=== PATIENT | male | born 1975 | race Two or more races ===

== ENCOUNTER 2024-02-20 11:39 | Emergency (ER) | payer OTHER ==
[~2024-02-20] VITALS: Ht 175.3 cm; Wt 100.0 kg
[2024-02-20 12:10] VITALS: RESP 18; O2SAT 97
[2024-02-20 12:43] LABS: Basophils # (auto) 0.1 10 ^3/uL (0-0.2); Basophils % (auto) 0.5 % (0.0-2.0); Eosinophils # (auto) 0.3 10 ^3/uL (0-0.8); Eosinophils % (auto) 3.1 % (0.0-7.0); Hematocrit 43.2 % (41.0-53.0); Hemoglobin 14.3 g/dL (13.5-17.5); Lymphocytes # (auto) 2.1 10 ^3/uL (0.4-5.4); Lymphocytes % (auto) 19.6 % (10.0-50.0); Mean Corpuscular Hgb Conc. 33.1 g/dL (32.0-36.0); Mean Corpuscular Volume 90.4 fL (80.0-100.0); Monocytes # (auto) 0.6 10 ^3/uL (0-1.3); Neutrophils # (auto) 7.7 10 ^3/uL (1.6-8.6); Neutrophils % (auto) 70.8 % (37.0-80.0); Nucleated Red Blood Cells % 0.1 %; Red Blood Cells 4.78 10^6/uL (4.5-5.90); Red Cell Distribution Width 14.9 % (11.8-14.3); White Blood Cell 10.8 10^3/uL (4.4-10.8)
[2024-02-20 12:56] LABS: Chloride 107 mmol/L (98-107); Potassium 3.8 mmol/L (3.5-5.1); Sodium 140 mmol/L (136-145)
[2024-02-20 12:57] LABS: Anion Gap 5 (5-15); Carbon Dioxide 28 mmol/L (20-30)
[2024-02-20 12:58] LABS: Calcium 8.9 mg/dL (8.5-10.1)
[2024-02-20 13:02] LABS: Blood Urea Nitrogen 8 mg/dL (9-23); Glucose 91 mg/dL (74-106)
[2024-02-20 19:35] VITALS: BP 105/72; PULSE 92; RESP 16; TEMP 98.4; O2SAT 98
== END 2024-02-20 21:27 | disposition left against medical advice (07) ==
LOC: ER 11:39 → EDBD 11:39 → ER 21:27
DX: S91.111A Laceration without foreign body of right great toe without damage to nail, initial encounter (principal); F17.210 Nicotine dependence, cigarettes, uncomplicated; Z87.442 Personal history of urinary calculi; Z98.890 Other specified postprocedural states; Z88.0 Allergy status to penicillin; X58.XXXA Exposure to other specified factors, initial encounter; Y93.89 Activity, other specified; Y92.89 Other specified places as the place of occurrence of the external cause; Y99.8 Other external cause status
CPT/HCPCS: 36415; 80048; 85025

== ENCOUNTER 2024-02-21 12:15 | Emergency (ER) | payer OTHER ==
[~2024-02-21] VITALS: Ht 167.6 cm; Wt 82.0 kg
[2024-02-21 17:04] VITALS: BP 124/75; PULSE 97; RESP 18; TEMP 98.1; O2SAT 98
== END 2024-02-21 23:10 | disposition home or self-care (01) ==
LOC: EDBD 12:15 → ER 12:15
DX: S99.921A Unspecified injury of right foot, initial encounter (principal); F17.210 Nicotine dependence, cigarettes, uncomplicated; Z88.0 Allergy status to penicillin; Z87.442 Personal history of urinary calculi; Z90.49 Acquired absence of other specified parts of digestive tract; Z59.00 Homelessness unspecified; W05.0XXA Fall from non-moving wheelchair, initial encounter; Y93.89 Activity, other specified; Y92.89 Other specified places as the place of occurrence of the external cause; Y99.8 Other external cause status

== ENCOUNTER 2024-03-20 03:58 | Inpatient (IN) | payer OTHER ==
[2024-03-20] VITALS (9 sets, daily range): BP systolic 99–109; BP diastolic 58–68; PULSE 57–73; RESP 14–19; TEMP 97.4–97.9; O2SAT 93–100
[~2024-03-20] VITALS: Ht 180.3 cm; Wt 119.0 kg
[2024-03-20 04:43] LABS: Basophils # (auto) 0.1 10 ^3/uL (0-0.2); Basophils % (auto) 1.3 % (0.0-2.0); Eosinophils # (auto) 0.4 10 ^3/uL (0-0.8); Eosinophils % (auto) 4.3 % (0.0-7.0); Hematocrit 38.4 % (41.0-53.0); Hemoglobin 12.7 g/dL (13.5-17.5); Lymphocytes # (auto) 1.7 10 ^3/uL (0.4-5.4); Lymphocytes % (auto) 18.1 % (10.0-50.0); Mean Corpuscular Hemoglobin 29.5 pg (28.0-32.0); Mean Corpuscular Volume 89.5 fL (80.0-100.0); Monocytes # (auto) 0.8 10 ^3/uL (0-1.3); Neutrophils # (auto) 6.5 10 ^3/uL (1.6-8.6); Neutrophils % (auto) 68.3 % (37.0-80.0); Nucleated Red Blood Cells % 0.1 %; Red Blood Cells 4.29 10^6/uL (4.5-5.90); Red Cell Distribution Width 14.4 % (11.8-14.3); White Blood Cell 9.6 10^3/uL (4.4-10.8)
[2024-03-20 04:52] LABS: Chloride 102 mmol/L (98-107); Potassium 3.9 mmol/L (3.5-5.1); Sodium 133 mmol/L (136-145)
[2024-03-20 04:53] LABS: Anion Gap 6 (5-15); Carbon Dioxide 25 mmol/L (20-30)
[2024-03-20 04:58] LABS: BUN/Creatinine Ratio 26.2 (10.0-20.0); Blood Urea Nitrogen 11 mg/dL (9-23); Glucose 120 mg/dL (74-106)
[2024-03-20 07:48] LABS: Urine Bacteria None Seen /hpf (None Seen)
[2024-03-20] MEDS: levoFLOXacin 500MG 100 ML IV ONE (08:01)
[2024-03-20] MEDS: KETOROLAC TROMETH 30 MG/ML 1ML VIAL IV ONE (08:02)
[2024-03-20 08:09] LABS: Urine Blood 3+ /uL (Negative); Urine Clarity Ex.Turbid (Clear); Urine Color Dark-Brown (Yellow); Urine Mucus FEW (None Seen); Urine Protein, UAD 2+ (Negative); Urine Specific Gravity 1.032 (1.001-1.035); Urine Urobilinogen 4 mg/dL (Negative); Urine WBC 289 /hpf (0 - 3); Urine WBC Clumps PRESENT /hpf (None Seen)
[2024-03-20] MEDS ORDERED: ACETAMINOPHEN 325 MG TAB PO PRN (09:15)
[2024-03-20 09:39] LABS: Triglycerides 58 mg/dL (< 150)
[2024-03-20 09:40] LABS: LDL Cholesterol 66 mg/dL (< 100)
[2024-03-20 09:41] LABS: Cholesterol 115 mg/dL (< 200); HDL Cholesterol 36 mg/dL (40-59)
[2024-03-20] MEDS: SODIUM CHLORIDE 0.9% 2,000 ML IV ONE (09:46)
[2024-03-20] MEDS: SODIUM CHLORIDE 0.9% 1,000 ML IV SCH (10:38)
[2024-03-20] MEDS: MORPHINE SULFATE INJ 2 MG/ml SYRG IV PRN (10:40)
[2024-03-20] MEDS: levoFLOXacin 500MG 100 ML IV SCH (10:41)
[2024-03-20] MEDS: ENOXAPARIN SOD 40 MG/0.4 ML SYRINGE SC SCH (10:41)
[2024-03-20] MEDS: TAMSULOSIN HYDROCHLORIDE 0.4 MG CAP PO ONE (10:41)
[2024-03-20] MEDS: TAMSULOSIN HYDROCHLORIDE 0.4 MG CAP PO SCH (18:06)
[2024-03-20] MEDS: HYDROcodone-ACET 5/325MG TAB PO PRN (18:11)
[2024-03-21] VITALS (12 sets, daily range): BP systolic 92–117; BP diastolic 44–75; PULSE 50–75; RESP 17–18; TEMP 97.4–98.6; O2SAT 92–99
[2024-03-21] MEDS: KETOROLAC TROMETH 30 MG/ML 1ML VIAL IV PRN (04:53)
[2024-03-21 07:38] LABS: Alkaline Phosphatase 94 U/L (46-116); Calcium 8.8 mg/dL (8.5-10.1); Carbon Dioxide 24 mmol/L (20-30); Chloride 106 mmol/L (98-107); Glucose 84 mg/dL (74-106)
[2024-03-21 07:39] LABS: Albumin 3.5 g/dL (3.2-4.8); Anion Gap 5 (5-15); Aspartate Aminotransferase 11 U/L (13-40); BUN/Creatinine Ratio 22.2 (10.0-20.0); Bilirubin, Total 0.2 mg/dL (0.2-1.0); Blood Urea Nitrogen 8 mg/dL (9-23); Sodium 135 mmol/L (136-145); Total Protein 5.9 g/dL (5.7-8.2)
[2024-03-21 07:41] LABS: Alanine Aminotransferase < 9 U/L (7-40)
[2024-03-21 08:09] LABS: Basophils # (auto) 0 10 ^3/uL (0-0.2); Basophils % (auto) 0.8 % (0.0-2.0); Eosinophils # (auto) 0.4 10 ^3/uL (0-0.8); Eosinophils % (auto) 7.5 % (0.0-7.0); Hemoglobin 11.9 g/dL (13.5-17.5); Lymphocytes # (auto) 1.7 10 ^3/uL (0.4-5.4); Lymphocytes % (auto) 33.4 % (10.0-50.0); Mean Corpuscular Hemoglobin 29.7 pg (28.0-32.0); Mean Corpuscular Hgb Conc. 33.1 g/dL (32.0-36.0); Mean Corpuscular Volume 89.6 fL (80.0-100.0); Monocytes # (auto) 0.5 10 ^3/uL (0-1.3); Monocytes % (auto) 10.2 % (0.0-12.0); Neutrophils # (auto) 2.4 10 ^3/uL (1.6-8.6); Neutrophils % (auto) 48.1 % (37.0-80.0); Nucleated Red Blood Cells % 0.2 %; Red Blood Cells 4.02 10^6/uL (4.5-5.90); Red Cell Distribution Width 14.7 % (11.8-14.3)
[2024-03-21 09:08] LABS: Phosphorus 3.4 mg/dL (2.4-5.1)
[2024-03-21 09:18] LABS: INR 1.06 (0.9-1.15); Partial Thromboplastin Time 33.1 SEC (24.5-34.5); Prothrombin Time 11.1 sec (9.3-11.8)
[2024-03-21 10:20] LABS: Magnesium 1.9 mg/dL (1.6-2.6)
[2024-03-21] MEDS: ALBUTEROL SULF 2.5 MG/0.5ML(0.5%) NEB SOLN NEB PRN (18:18)
[2024-03-21] MEDS: ERGOCALCIFEROL 50,000 UNIT(1.25MG) CAP PO SCH (18:49)
[2024-03-22] VITALS (8 sets, daily range): BP systolic 93–143; BP diastolic 48–84; PULSE 49–71; RESP 17–19; TEMP 97.6–98.2; O2SAT 94–97
[2024-03-22 07:32] LABS: Basophils # (auto) 0.1 10 ^3/uL (0-0.2); Basophils % (auto) 1.1 % (0.0-2.0); Eosinophils # (auto) 0.3 10 ^3/uL (0-0.8); Eosinophils % (auto) 5.5 % (0.0-7.0); Hematocrit 35.9 % (41.0-53.0); Lymphocytes # (auto) 1.4 10 ^3/uL (0.4-5.4); Lymphocytes % (auto) 26.8 % (10.0-50.0); Mean Corpuscular Hemoglobin 30.1 pg (28.0-32.0); Mean Corpuscular Hgb Conc. 33.4 g/dL (32.0-36.0); Monocytes # (auto) 0.4 10 ^3/uL (0-1.3); Monocytes % (auto) 8.8 % (0.0-12.0); Neutrophils # (auto) 2.9 10 ^3/uL (1.6-8.6); Neutrophils % (auto) 57.8 % (37.0-80.0); Nucleated Red Blood Cells % 0.1 %; Red Blood Cells 3.99 10^6/uL (4.5-5.90); Red Cell Distribution Width 14.3 % (11.8-14.3); White Blood Cell 5.1 10^3/uL (4.4-10.8)
[2024-03-22 07:50] LABS: Alanine Aminotransferase 10 U/L (7-40); Albumin 3.5 g/dL (3.2-4.8); Alkaline Phosphatase 97 U/L (46-116); Anion Gap 5 (5-15); Aspartate Aminotransferase 13 U/L (13-40); Bilirubin, Total 0.3 mg/dL (0.2-1.0); Blood Urea Nitrogen 6 mg/dL (9-23); Carbon Dioxide 26 mmol/L (20-30); Chloride 103 mmol/L (98-107); Glucose 79 mg/dL (74-106); Potassium 4.1 mmol/L (3.5-5.1); Sodium 134 mmol/L (136-145); Total Protein 6.1 g/dL (5.7-8.2)
[2024-03-22 08:06] LABS: PSA Free 0.1 ng/mL; Prostate Specific Antigen 0.9 ng/mL (0.0-4.0)
[2024-03-22] MEDS: cefTRIAXone 1GM/50ML D5W 50 ML IV SCH (09:06)
[2024-03-22 12:11] LABS: Amphetamine Screen, Urine Neg (NEGATIVE); Barbiturate Scree,Urine Neg (NEGATIVE); Benzodiazephine Screen, Urine Neg (NEGATIVE)
[2024-03-22 12:12] LABS: Cannabinoid Screen, Urine Pos (NEGATIVE); Cocaine Screen, Urine Neg (NEGATIVE); Opiate Scree,Urine Pos (NEGATIVE); Phencyclidine Screen, Urine Neg (NEGATIVE)
[2024-03-22] MEDS ORDERED: ALB5IS NEB (15:11)
[2024-03-22] MEDS ORDERED: TAMS-35 PO (15:11)
[2024-03-22] MEDS ORDERED: ERGO1CAP23 PO (15:11)
[2024-03-22] MEDS ORDERED: ACET-1882 PO (15:11)
[2024-03-22] MEDS ORDERED: LEVO500T91 PO (15:12)
[2024-03-23 01:00] VITALS: BP 94/46; PULSE 54; RESP 18; TEMP 98; O2SAT 93
[2024-03-23 05:00] VITALS: BP 109/70; PULSE 57; RESP 18; TEMP 97.6; O2SAT 98
[2024-03-23 09:00] VITALS: BP 115/78; PULSE 63; RESP 18; TEMP 97.7; O2SAT 99
[2024-03-23 11:50] VITALS: O2SAT 94
[2024-03-23 13:00] VITALS: BP 113/62; PULSE 63; RESP 19; TEMP 97.7; O2SAT 95
[2024-03-23 14:53] VITALS: BP 118/77; PULSE 65; RESP 18
[2024-03-23] MEDS ORDERED: BACDST PO (15:30)
== END 2024-03-23 17:02 | disposition home or self-care (01) | DRG 465 ==
LOC: EDBD 03:58 → ER 03:58 → OVERFLOW 09:11 → EAST 13:15
PROVIDERS: ADMIT Internal Medicine; ATTEND Internal Medicine
DX: N20.0 Calculus of kidney (principal); R57.1 Hypovolemic shock; G82.20 Paraplegia, unspecified; L89.899 Pressure ulcer of other site, unspecified stage; E66.01 Morbid (severe) obesity due to excess calories; J45.909 Unspecified asthma, uncomplicated; I10 Essential (primary) hypertension; F17.210 Nicotine dependence, cigarettes, uncomplicated; Z74.01 Bed confinement status; Z90.49 Acquired absence of other specified parts of digestive tract; Z88.0 Allergy status to penicillin; Z79.899 Other long term (current) drug therapy; Z68.34 Body mass index [BMI] 34.0-34.9, adult
CPT/HCPCS: 36415; 76775; 80048; 80053; 80061; 80307; 81001; 82140; 82306; 82607; 83036; 83690; 83735; 84100; 84154; 84443; 84550; 85025; 85610; 85730; 87077; 87081; 87086; 87186; 87205; 94640; 96361; 96365; 96366; 96372; 96375; 97110; 97163; 97530; G0378; J1885; J1956

== ENCOUNTER 2024-03-30 18:20 | Inpatient (IN) | payer OTHER ==
[~2024-03-30] VITALS: Ht 175.3 cm; Wt 100.4 kg
[~2024-03-30 18:20] MED LIST: ACET-1882 PO; ALB5IS NEB; BACDST PO; ERGO1CAP23 PO; LEVO500T91 PO; TAMS-35 PO
[2024-03-30 19:19] LABS: Basophils # (auto) 0.1 10 ^3/uL (0-0.2); Basophils % (auto) 1.4 % (0.0-2.0); Eosinophils # (auto) 0.3 10 ^3/uL (0-0.8); Eosinophils % (auto) 3.3 % (0.0-7.0); Hematocrit 43.6 % (41.0-53.0); Hemoglobin 14.2 g/dL (13.5-17.5); Lymphocytes # (auto) 2.2 10 ^3/uL (0.4-5.4); Lymphocytes % (auto) 21.3 % (10.0-50.0); Mean Corpuscular Hemoglobin 29.5 pg (28.0-32.0); Mean Corpuscular Hgb Conc. 32.5 g/dL (32.0-36.0); Mean Corpuscular Volume 90.8 fL (80.0-100.0); Monocytes # (auto) 0.6 10 ^3/uL (0-1.3); Monocytes % (auto) 5.6 % (0.0-12.0); Neutrophils # (auto) 7.1 10 ^3/uL (1.6-8.6); Neutrophils % (auto) 68.4 % (37.0-80.0); Nucleated Red Blood Cells % 0.1 %; Red Cell Distribution Width 14.4 % (11.8-14.3); White Blood Cell 10.3 10^3/uL (4.4-10.8)
[2024-03-30 19:36] LABS: Alanine Aminotransferase 10 U/L (7-40); Albumin 4.1 g/dL (3.2-4.8); Alkaline Phosphatase 111 U/L (46-116); Anion Gap 5 (5-15); Aspartate Aminotransferase 13 U/L (13-40); BUN/Creatinine Ratio 26.5 (10.0-20.0); Blood Urea Nitrogen 13 mg/dL (9-23); Calcium 9.9 mg/dL (8.5-10.1); Carbon Dioxide 30 mmol/L (20-30); Chloride 105 mmol/L (98-107); Glucose 97 mg/dL (74-106); Potassium 4.4 mmol/L (3.5-5.1); Sodium 140 mmol/L (136-145)
[2024-03-30 19:37] LABS: Bilirubin, Total 0.2 mg/dL (0.2-1.0); Total Protein 6.6 g/dL (5.7-8.2)
[2024-03-30 20:59] LABS: Urine Bacteria None Seen /hpf (None Seen)
[2024-03-30] MEDS: SODIUM CHLORIDE 0.9% 1,000 ML IV ONE (21:15)
[2024-03-30 21:18] LABS: Urine Blood 3+ /uL (Negative); Urine Clarity Ex.Turbid (Clear); Urine Color Brown (Yellow); Urine Mucus MODERATE (None Seen); Urine Protein, UAD 2+ (Negative); Urine Specific Gravity 1.032 (1.001-1.035); Urine Urobilinogen 2 mg/dL (Negative); Urine WBC 37 /hpf (0 - 3); Urine pH 5.5 (5.0-9.0)
[2024-03-30] MEDS: KETOROLAC TROMETH 30 MG/ML 1ML VIAL IV ONE (22:25)
[2024-03-30] MEDS ORDERED: ACETAMINOPHEN 325 MG TAB PO PRN (23:15)
[2024-03-30] MEDS ORDERED: NITROGLYCERIN 0.4 MG SL TAB SL PRN (23:15)
[2024-03-30] MEDS ORDERED: ONDANSETRON HCL 4 MG/2 ML VIAL IV PRN (23:15)
[2024-03-30] MEDS ORDERED: MORPHINE SULFATE INJ 2 MG/ml SYRG IV PRN (23:15)
[2024-03-30] MEDS ORDERED: TEMAZEPAM 15 MG CAP PO PRN (23:15)
[2024-03-30] MEDS: SODIUM CHLORIDE 0.9% 1,000 ML IV SCH (23:19)
[2024-03-30] MEDS: levoFLOXacin 500MG 100 ML IV ONE (23:31)
[2024-03-31] MEDS ORDERED: VANCOMYCIN PER PHARMACY 0 MG IV SCH (00:15)
[2024-03-31] MEDS ORDERED: ACETAMINOPHEN 325 MG TAB PO PRN (00:15)
[2024-03-31] MEDS: NOREPINEPHRINE 8 MG/250ML KIT 250 ML IV SCH (00:39)
[2024-03-31] MEDS: NOREPINEPHRINE 8 MG/250ML KIT 250 ML IV ONE (00:40)
[2024-03-31] MEDS: SODIUM CHLORIDE 0.9% 1,000 ML IV ONE (01:08)
[2024-03-31] MEDS: VANCOMYCIN 1GM/200ML 200 ML IV ONE ×2 (01:51→08:46)
[2024-03-31] MEDS: MORPHINE SULFATE INJ 2 MG/ml SYRG IV PRN (02:16)
[2024-03-31] MEDS: DOPamine 1600MCG/ML D5W 250 ML IV SCH (03:58)
[2024-03-31 04:44] LABS: Basophils # (auto) 0.2 10 ^3/uL (0-0.2); Basophils % (auto) 2.5 % (0.0-2.0); Eosinophils # (auto) 0.4 10 ^3/uL (0-0.8); Eosinophils % (auto) 4.2 % (0.0-7.0); Hemoglobin 12.2 g/dL (13.5-17.5); Lymphocytes # (auto) 2.6 10 ^3/uL (0.4-5.4); Lymphocytes % (auto) 26.2 % (10.0-50.0); Mean Corpuscular Hemoglobin 29.4 pg (28.0-32.0); Mean Corpuscular Volume 89.1 fL (80.0-100.0); Monocytes # (auto) 0.6 10 ^3/uL (0-1.3); Monocytes % (auto) 6.5 % (0.0-12.0); Neutrophils # (auto) 5.9 10 ^3/uL (1.6-8.6); Neutrophils % (auto) 60.6 % (37.0-80.0); Nucleated Red Blood Cells % 0.1 %; Red Blood Cells 4.15 10^6/uL (4.5-5.90); Red Cell Distribution Width 14.1 % (11.8-14.3); White Blood Cell 9.8 10^3/uL (4.4-10.8)
[2024-03-31 05:27] LABS: Albumin 3.3 g/dL (3.2-4.8); Alkaline Phosphatase 85 U/L (46-116); Anion Gap 7 (5-15); Aspartate Aminotransferase 14 U/L (13-40); BUN/Creatinine Ratio 30.3 (10.0-20.0); Blood Urea Nitrogen 10 mg/dL (9-23); Calcium 8.9 mg/dL (8.5-10.1); Carbon Dioxide 24 mmol/L (20-30); Chloride 110 mmol/L (98-107); Glucose 87 mg/dL (74-106); Potassium 4.3 mmol/L (3.5-5.1); Sodium 141 mmol/L (136-145)
[2024-03-31 05:28] LABS: Bilirubin, Total 0.2 mg/dL (0.2-1.0); Total Protein 5.6 g/dL (5.7-8.2)
[2024-03-31 06:02] LABS: Alanine Aminotransferase < 9 U/L (7-40)
[2024-03-31 07:45] VITALS: PULSE 59; RESP 10; O2SAT 96
[2024-03-31] MEDS: ERGOCALCIFEROL 50,000 UNIT(1.25MG) CAP PO SCH (09:33)
[2024-03-31] MEDS: SULFAMETHOX W/TRIMETH(800/160MG) DS TAB PO SCH (09:33)
[2024-03-31] MEDS: HYDROcodone-ACET 5/325MG TAB PO PRN (09:33)
[2024-03-31] MEDS ORDERED: levoFLOXacin 500MG 100 ML IV SCH (10:00)
[2024-03-31] MEDS: KETOROLAC TROMETH 30 MG/ML 1ML VIAL IV SCH (12:35)
[2024-03-31] MEDS: VANCOMYCIN 1GM/200ML 200 ML IV SCH (16:53)
[2024-03-31 17:50] VITALS: BP 89/48; PULSE 67; RESP 17; TEMP 97.9; O2SAT 95
[2024-03-31] MEDS: TAMSULOSIN HYDROCHLORIDE 0.4 MG CAP PO SCH (19:04)
[2024-03-31 20:00] VITALS: PULSE 69; RESP 19; O2SAT 97
[2024-03-31 21:00] VITALS: BP 98/52; PULSE 67; RESP 17; TEMP 97.7; O2SAT 97
[2024-03-31] MEDS: levoFLOXacin 500 MG TAB PO SCH (21:39)
[2024-03-31] MEDS: levoFLOXacin 500MG 100 ML IV SCH (21:57)
[2024-04-01] VITALS (8 sets, daily range): BP systolic 91–118; BP diastolic 50–72; PULSE 55–83; RESP 16–20; TEMP 36.7; O2SAT 94–98
[2024-04-01] MEDS ORDERED: LEVO500T91 PO ×2 (13:14→13:16)
[2024-04-01] MEDS ORDERED: HYDR-4902 PO (13:14)
[2024-04-01] MEDS ORDERED: TEMA15CA2 PO (13:14)
[2024-04-01] MEDS ORDERED: TAMS-35 PO (13:16)
[2024-04-01] MEDS ORDERED: MUPI2OIN2 EX (15:33)
[2024-04-01] MEDS: ONDANSETRON HCL 4 MG/2 ML VIAL IV PRN (18:35)
[2024-04-02] VITALS (7 sets, daily range): BP systolic 89–99; BP diastolic 53–63; PULSE 56–81; RESP 16–20; TEMP 97.2–98.7; O2SAT 93–99
[2024-04-02] MEDS: ALPRAZolam 0.5 MG TAB PO PRN (02:31)
[2024-04-02] MEDS: ACETAMINOPHEN 325 MG TAB PO PRN (02:31)
[2024-04-02] MEDS: MIDODRINE HCL 10 MG TAB PO SCH (05:28)
[2024-04-02 07:06] LABS: Basophils # (auto) 0.1 10 ^3/uL (0-0.2); Basophils % (auto) 1.2 % (0.0-2.0); Eosinophils # (auto) 0.2 10 ^3/uL (0-0.8); Eosinophils % (auto) 2.3 % (0.0-7.0); Hematocrit 39.2 % (41.0-53.0); Lymphocytes # (auto) 1.7 10 ^3/uL (0.4-5.4); Lymphocytes % (auto) 19.2 % (10.0-50.0); Mean Corpuscular Hemoglobin 29.5 pg (28.0-32.0); Mean Corpuscular Hgb Conc. 33.1 g/dL (32.0-36.0); Mean Corpuscular Volume 89.3 fL (80.0-100.0); Monocytes # (auto) 0.4 10 ^3/uL (0-1.3); Monocytes % (auto) 4.6 % (0.0-12.0); Neutrophils # (auto) 6.3 10 ^3/uL (1.6-8.6); Neutrophils % (auto) 72.7 % (37.0-80.0); Red Blood Cells 4.39 10^6/uL (4.5-5.90); Red Cell Distribution Width 13.9 % (11.8-14.3); White Blood Cell 8.7 10^3/uL (4.4-10.8)
[2024-04-02 07:38] LABS: Albumin 3.6 g/dL (3.2-4.8); Alkaline Phosphatase 99 U/L (46-116); Anion Gap 9 (5-15); Aspartate Aminotransferase 14 U/L (13-40); BUN/Creatinine Ratio 16.3 (10.0-20.0); Blood Urea Nitrogen 7 mg/dL (9-23); Calcium 9.5 mg/dL (8.5-10.1); Carbon Dioxide 22 mmol/L (20-30); Chloride 104 mmol/L (98-107); Glucose 65 mg/dL (74-106); Potassium 4.2 mmol/L (3.5-5.1)
[2024-04-02 07:39] LABS: Bilirubin, Total 0.4 mg/dL (0.2-1.0)
[2024-04-02 07:43] LABS: Alanine Aminotransferase < 9 U/L (7-40); Sodium 135 mmol/L (136-145)
[2024-04-02] MEDS: MUPIROCIN 2% OINT 15gm or 22gm FOR MRSA NARES EACHNOSTRI SCH (10:00)
[2024-04-02] MEDS: SODIUM CHLORIDE 0.9% 500 ML IV ONE (10:46)
[2024-04-02] MEDS: ALBUMIN 25% 50 ML IV SCH (10:52)
[2024-04-02] MEDS ORDERED: KETOROLAC TROMETH 30 MG/ML 1ML VIAL IV PRN (12:30)
[2024-04-02] MEDS: HYDROcodone-ACET 10/325MG TAB PO PRN (17:06)
[2024-04-03 04:00] VITALS: BP 94/65; PULSE 56; RESP 20; TEMP 97.7; O2SAT 90
[2024-04-03 08:00] VITALS: BP 105/66; PULSE 49; PULSE 61; RESP 17; TEMP 98; O2SAT 93
[2024-04-03 12:00] VITALS: BP 104/63; PULSE 58; RESP 17; TEMP 98.3; O2SAT 98
[2024-04-03 17:00] VITALS: BP 111/66; PULSE 66; RESP 18; TEMP 98; O2SAT 94
[2024-04-03 20:00] VITALS: PULSE 51; PULSE 71; RESP 16; O2SAT 99
[2024-04-03] MEDS: QUEtiapine FUMARATE 25 MG TAB PO SCH (20:56)
[2024-04-03 21:00] VITALS: BP 105/61; PULSE 64; RESP 18; TEMP 98.1; O2SAT 94
[2024-04-03] MEDS: HYDROcodone-ACET 5/325MG TAB PO PRN (21:04)
[2024-04-04] VITALS (8 sets, daily range): BP systolic 3–100; BP diastolic 49–60; PULSE 46–66; RESP 16–20; TEMP 97.9–98.3; O2SAT 93–99
[2024-04-05] VITALS (8 sets, daily range): BP systolic 92–106; BP diastolic 40–72; PULSE 53–79; RESP 18–20; TEMP 97.8–98.8; O2SAT 96–98
[2024-04-05] MEDS: CITALOPRAM HYDROBR 20 MG TAB PO SCH (13:13)
[2024-04-06 05:00] VITALS: BP 102/62; PULSE 71; RESP 19; TEMP 98.6; O2SAT 96
[2024-04-06 08:00] VITALS: PULSE 50
[2024-04-06 08:48] VITALS: BP 104/59; PULSE 63; RESP 17; TEMP 98.3; O2SAT 95
[2024-04-06 13:00] VITALS: BP 102/57; PULSE 71; RESP 19; TEMP 97.9; O2SAT 94
[2024-04-06 20:00] VITALS: PULSE 52
[2024-04-06 21:00] VITALS: BP 95/49; PULSE 60; RESP 18; TEMP 97.9; O2SAT 95
[2024-04-07] VITALS (7 sets, daily range): BP systolic 93–133; BP diastolic 59–72; PULSE 49–76; RESP 16–20; TEMP 36.7; O2SAT 18–96
[2024-04-08] VITALS (7 sets, daily range): BP systolic 96–100; BP diastolic 49–58; PULSE 52–71; RESP 16; TEMP 97.8–98.1; O2SAT 94–96
[2024-04-08] MEDS: QUEtiapine FUMARATE 25 MG TAB PO SCH (12:00)
[2024-04-09] VITALS (9 sets, daily range): BP systolic 87–105; BP diastolic 53–72; PULSE 55–79; RESP 16–18; TEMP 97.9–98.6; O2SAT 96–97
[2024-04-09] MEDS: Ensure Enlive Strawberry 8oz Bottle PO SCH (18:31)
[2024-04-10] VITALS (7 sets, daily range): BP systolic 107–117; BP diastolic 69–73; PULSE 59–96; RESP 18; TEMP 97.8–98.3; O2SAT 94–97
[2024-04-11 00:40] VITALS: BP 100/66; PULSE 89; RESP 18; TEMP 98; O2SAT 95
[2024-04-11 04:31] VITALS: BP 101/69; PULSE 88; RESP 18; TEMP 98.1; O2SAT 95
[2024-04-11 08:00] VITALS: PULSE 88; RESP 18
[2024-04-11] MEDS: CITALOPRAM HYDROBR 20 MG TAB PO SCH (09:50)
[2024-04-11 12:25] VITALS: BP 119/72; PULSE 82; RESP 17; O2SAT 95
[2024-04-11] MEDS ORDERED: CITA-77 PO (14:47)
[2024-04-11] MEDS ORDERED: MID10T PO (14:47)
[2024-04-11 15:12] LABS: Basophils # (auto) 0.1 10 ^3/uL (0-0.2); Basophils % (auto) 1.2 % (0.0-2.0); Eosinophils # (auto) 0.1 10 ^3/uL (0-0.8); Eosinophils % (auto) 1.5 % (0.0-7.0); Hematocrit 46.7 % (41.0-53.0); Hemoglobin 15.2 g/dL (13.5-17.5); Lymphocytes # (auto) 1.7 10 ^3/uL (0.4-5.4); Lymphocytes % (auto) 23.4 % (10.0-50.0); Mean Corpuscular Hemoglobin 28.9 pg (28.0-32.0); Mean Corpuscular Hgb Conc. 32.6 g/dL (32.0-36.0); Mean Corpuscular Volume 88.7 fL (80.0-100.0); Monocytes # (auto) 0.5 10 ^3/uL (0-1.3); Monocytes % (auto) 6.5 % (0.0-12.0); Neutrophils % (auto) 67.4 % (37.0-80.0); Nucleated Red Blood Cells % 0.3 %; Red Blood Cells 5.27 10^6/uL (4.5-5.90); White Blood Cell 7.4 10^3/uL (4.4-10.8)
[2024-04-11 15:14] LABS: Alanine Aminotransferase 14 U/L (7-40); Alkaline Phosphatase 98 U/L (46-116); Anion Gap 7 (5-15); Aspartate Aminotransferase 10 U/L (13-40); Bilirubin, Total 0.4 mg/dL (0.2-1.0); Blood Urea Nitrogen 8 mg/dL (9-23); Calcium 9.6 mg/dL (8.7-10.4); Carbon Dioxide 27 mmol/L (20-30); Chloride 98 mmol/L (98-107); Glucose 87 mg/dL (74-106); Potassium 4.2 mmol/L (3.5-5.1); Sodium 132 mmol/L (136-145); Total Protein 6.6 g/dL (5.7-8.2)
[2024-04-11 17:00] VITALS: BP 99/68; PULSE 74; RESP 18; O2SAT 95
== END 2024-04-11 19:00 | disposition home or self-care (01) | DRG 463 ==
LOC: EDUNIT# 18:20 → ER 18:20 → EDBD 18:20 → TELE-WESTW 23:06 → TELE 23:06 → TELE-WESTW 03-31 18:02 → WEST WING 04-10 23:19
PROVIDERS: ADMIT Internal Medicine; ATTEND Nurse Practitioner
DX: N13.6 Pyonephrosis (principal); R57.1 Hypovolemic shock; G82.20 Paraplegia, unspecified; F25.9 Schizoaffective disorder, unspecified; R45.851 Suicidal ideations; N39.0 Urinary tract infection, site not specified; R00.1 Bradycardia, unspecified; F17.210 Nicotine dependence, cigarettes, uncomplicated; F32.A Depression, unspecified; Z87.442 Personal history of urinary calculi; Z88.0 Allergy status to penicillin; Z90.49 Acquired absence of other specified parts of digestive tract; Z91.51 Personal history of suicidal behavior; R31.9 Hematuria, unspecified
CPT/HCPCS: 36415; 74176; 76870; 80053; 80202; 81001; 82565; 85025; 87081; 96361; 96365; 96375; G0378; J1885; J1956; J2405

== ENCOUNTER 2024-04-24 23:47 | Inpatient (IN) | payer OTHER ==
[~2024-04-24] VITALS: Ht 175.3 cm; Wt 100.0 kg
[~2024-04-24 23:47] MED LIST changes: -BACDST PO; +CITA-77 PO; +HYDR-4902 PO; +MID10T PO; +MUPI2OIN2 EX
[2024-04-25 00:17] VITALS: PULSE 75; O2SAT 96
[2024-04-25 03:52] LABS: Basophils # (auto) 0.1 10 ^3/uL (0-0.2); Eosinophils # (auto) 0.3 10 ^3/uL (0-0.8); Eosinophils % (auto) 2.8 % (0.0-7.0); Hematocrit 39.9 % (41.0-53.0); Hemoglobin 13.3 g/dL (13.5-17.5); Lymphocytes # (auto) 1.6 10 ^3/uL (0.4-5.4); Lymphocytes % (auto) 16.5 % (10.0-50.0); Mean Corpuscular Hemoglobin 29.4 pg (28.0-32.0); Mean Corpuscular Hgb Conc. 33.3 g/dL (32.0-36.0); Mean Corpuscular Volume 88.1 fL (80.0-100.0); Monocytes # (auto) 0.8 10 ^3/uL (0-1.3); Monocytes % (auto) 8.5 % (0.0-12.0); Neutrophils # (auto) 6.9 10 ^3/uL (1.6-8.6); Neutrophils % (auto) 71.2 % (37.0-80.0); Red Blood Cells 4.53 10^6/uL (4.5-5.90); Red Cell Distribution Width 14.2 % (11.8-14.3); White Blood Cell 9.7 10^3/uL (4.4-10.8)
[2024-04-25 04:11] LABS: Alanine Aminotransferase 22 U/L (7-40); Albumin 3.7 g/dL (3.2-4.8); Alkaline Phosphatase 85 U/L (46-116); Anion Gap 4 (5-15); Aspartate Aminotransferase 19 U/L (13-40); BUN/Creatinine Ratio 16.4 (10.0-20.0); Blood Urea Nitrogen 10 mg/dL (9-23); Calcium 9.7 mg/dL (8.7-10.4); Carbon Dioxide 28 mmol/L (20-30); Chloride 108 mmol/L (98-107); Glucose 102 mg/dL (74-106); Potassium 3.9 mmol/L (3.5-5.1); Sodium 140 mmol/L (136-145)
[2024-04-25 04:12] LABS: Bilirubin, Total 0.3 mg/dL (0.2-1.0); Total Protein 6.4 g/dL (5.7-8.2)
[2024-04-25 04:54] LABS: Urine Bacteria None Seen /hpf (None Seen)
[2024-04-25 05:09] LABS: Urine Blood 3+ /uL (Negative); Urine Clarity Ex.Turbid (Clear); Urine Mucus FEW (None Seen); Urine Protein, UAD 1+ (Negative); Urine Urobilinogen Normal (Negative); Urine WBC 5 /hpf (0 - 3); Urine WBC Clumps PRESENT /hpf (None Seen)
[2024-04-25 05:11] LABS: Urine Color Amber (Yellow)
[2024-04-25] MEDS: levoFLOXacin 500MG 100 ML IV ONE (05:11)
[2024-04-25] MEDS: KETOROLAC TROMETH 30 MG/ML 1ML VIAL IV ONE (05:11)
[2024-04-25 05:12] LABS: Amphetamine Screen, Urine Neg (NEGATIVE); Barbiturate Scree,Urine Neg (NEGATIVE); Benzodiazephine Screen, Urine Neg (NEGATIVE); Cannabinoid Screen, Urine Pos (NEGATIVE); Cocaine Screen, Urine Neg (NEGATIVE); Opiate Scree,Urine Pos (NEGATIVE); Phencyclidine Screen, Urine Neg (NEGATIVE)
[2024-04-25] MEDS: SODIUM CHLORIDE 0.9% 1,000 ML IV SCH (08:00)
[2024-04-25] MEDS ORDERED: NITROGLYCERIN 0.4 MG SL TAB SL PRN (08:00)
[2024-04-25] MEDS ORDERED: ACETAMINOPHEN 325 MG TAB PO PRN (08:00)
[2024-04-25 08:05] VITALS: O2SAT 96
[2024-04-25] MEDS: diphenhdrAMINE HCL 50 MG/1 ML VL IV PRN (09:33)
[2024-04-25] MEDS: PIPERACILLIN-TAZOB 3.375GM 100 ML IV SCH ×2 (09:35→19:31)
[2024-04-25] MEDS: POLYETHYLENE GLYCOL 17 GM PWDR PO SCH (10:19)
[2024-04-25] MEDS: HYDROcodone-ACET 5/325MG TAB PO PRN (10:19)
[2024-04-25] MEDS: CITALOPRAM HYDROBR 20 MG TAB PO SCH (10:19)
[2024-04-25] MEDS: ENOXAPARIN SOD 40 MG/0.4 ML SYRINGE SC SCH (10:19)
[2024-04-25 11:59] LABS: INR 1.09 (0.9-1.15); Partial Thromboplastin Time 32.3 SEC (24.5-34.5); Prothrombin Time 11.5 sec (9.3-11.8)
[2024-04-25] MEDS: MIDODRINE HCL 10 MG TAB PO SCH (13:27)
[2024-04-25] MEDS: TAMSULOSIN HYDROCHLORIDE 0.4 MG CAP PO SCH (19:30)
[2024-04-25 19:45] VITALS: PULSE 53; RESP 17; O2SAT 97
[2024-04-25 20:00] VITALS: PULSE 53; RESP 15; O2SAT 95
[2024-04-25 22:00] VITALS: BP 104/61; PULSE 52; RESP 17; TEMP 98.6; O2SAT 93
[2024-04-26 06:57] LABS: Basophils # (auto) 0 10 ^3/uL (0-0.2); Eosinophils # (auto) 0.2 10 ^3/uL (0-0.8); Hemoglobin 9.1 g/dL (13.5-17.5); Lymphocytes # (auto) 1.1 10 ^3/uL (0.4-5.4); Mean Corpuscular Hemoglobin 29.1 pg (28.0-32.0)
[2024-04-26 07:01] LABS: Basophils % (auto) 0.6 % (0.0-2.0); Eosinophils % (auto) 3.3 % (0.0-7.0); Hematocrit 32.6 % (41.0-53.0); Lymphocytes % (auto) 24.7 % (10.0-50.0); Mean Corpuscular Hgb Conc. 27.9 g/dL (32.0-36.0); Mean Corpuscular Volume 104.1 fL (80.0-100.0); Monocytes # (auto) 0.4 10 ^3/uL (0-1.3); Monocytes % (auto) 8.5 % (0.0-12.0); Neutrophils # (auto) 2.9 10 ^3/uL (1.6-8.6); Neutrophils % (auto) 62.9 % (37.0-80.0); Nucleated Red Blood Cells % 0.1 %; Red Blood Cells 3.13 10^6/uL (4.5-5.90); Red Cell Distribution Width 16.3 % (11.8-14.3); White Blood Cell 4.6 10^3/uL (4.4-10.8)
[2024-04-26 08:21] LABS: Anion Gap 4 (5-15); Carbon Dioxide 20 mmol/L (20-30)
[2024-04-26 08:26] LABS: Alkaline Phosphatase 50 U/L (46-116); Glucose 59 mg/dL (74-106)
[2024-04-26 08:28] LABS: Alanine Aminotransferase 13 U/L (7-40); Albumin 1.9 g/dL (3.2-4.8); Aspartate Aminotransferase 15 U/L (13-40); Bilirubin, Total 0.2 mg/dL (0.2-1.0); Total Protein 3.7 g/dL (5.7-8.2)
[2024-04-26 08:32] LABS: BUN/Creatinine Ratio 26.3 (10.0-20.0); Blood Urea Nitrogen < 5 mg/dL (9-23); Chloride 122 mmol/L (98-107); Sodium 146 mmol/L (136-145)
[2024-04-26 08:51] LABS: Calcium 5.9 mg/dL (8.5-10.1)
[2024-04-26 09:52] LABS: Magnesium 1.2 mg/dL (1.6-2.6)
[2024-04-26 09:53] LABS: Phosphorus 2.5 mg/dL (2.4-5.1)
[2024-04-26] MEDS: PANTOPRAZOLE 40 MG/10 ML VIAL INJ IV SCH (09:55)
[2024-04-26 11:36] VITALS: BP 92/57; PULSE 49; RESP 16; TEMP 98; O2SAT 94
[2024-04-26] MEDS: CALCIUM GLUC 1,000mg/50ml-NS 50 ML IV SCH (13:08)
[2024-04-26] MEDS: MORPHINE SULFATE INJ 2 MG/ml SYRG IV PRN (13:08)
[2024-04-26] MEDS: ONDANSETRON HCL 4 MG/2 ML VIAL IV PRN (13:11)
[2024-04-26 16:57] VITALS: BP 98/70; PULSE 50; RESP 16; TEMP 98.1; O2SAT 96
[2024-04-26] MEDS: POTASSIUM CHL 20 Meq TABLET PO ONE (18:01)
[2024-04-26 20:00] VITALS: BP 94/60; PULSE 70; RESP 17; TEMP 98.3; O2SAT 92
[2024-04-26 21:00] VITALS: BP 94/60; PULSE 70; RESP 17; TEMP 98.3; O2SAT 92
[2024-04-26] MEDS: TEMAZEPAM 15 MG CAP PO PRN (23:36)
[2024-04-27] VITALS (9 sets, daily range): BP systolic 93–120; BP diastolic 32–77; PULSE 47–92; RESP 13–20; TEMP 97.4–98.5; O2SAT 92–98
[2024-04-27] MEDS: IODIXANOL 320MG/ML 100ML BTL IV ONE (13:53)
[2024-04-27] MEDS: fentaNYL CITRATE 100 MCG/2 ML VL ONE (13:53)
[2024-04-27] MEDS: MIDAZOLAM HCL 2MG/2ML 2ml VIAL (1mg/ml) ONE (13:53)
[2024-04-27] MEDS: LIDOCAINE 2%HCL (LOCAL ANESTH.) INJ 10ml MDV ONE (13:53)
[2024-04-27] MEDS: MAGNESIUM SULFATE 1GM/100ML 100 ML IV SCH ×2 (16:00→20:29)
[2024-04-27] MEDS ORDERED: PIPERACILLIN-TAZOB 3.375GM 100 ML IV SCH (16:00)
[2024-04-27] MEDS: PIPERACILLIN-TAZOB 3.375GM 100 ML IV SCH (18:28)
[2024-04-28 08:00] VITALS: TEMP 36.8
[2024-04-28 09:00] VITALS: BP 103/73; PULSE 101; RESP 18; TEMP 98.2; O2SAT 95
[2024-04-28 11:10] LABS: Basophils # (auto) 0 10 ^3/uL (0-0.2); Basophils % (auto) 0.3 % (0.0-2.0); Eosinophils # (auto) 0 10 ^3/uL (0-0.8); Hematocrit 41.5 % (41.0-53.0); Hemoglobin 13.9 g/dL (13.5-17.5); Lymphocytes # (auto) 1.2 10 ^3/uL (0.4-5.4); Lymphocytes % (auto) 10.6 % (10.0-50.0); Mean Corpuscular Hemoglobin 28.9 pg (28.0-32.0); Mean Corpuscular Hgb Conc. 33.5 g/dL (32.0-36.0); Mean Corpuscular Volume 86.1 fL (80.0-100.0); Monocytes # (auto) 0.4 10 ^3/uL (0-1.3); Monocytes % (auto) 3.8 % (0.0-12.0); Neutrophils # (auto) 9.4 10 ^3/uL (1.6-8.6); Neutrophils % (auto) 85.3 % (37.0-80.0); Nucleated Red Blood Cells % 0.1 %; Red Blood Cells 4.82 10^6/uL (4.5-5.90); Red Cell Distribution Width 13.7 % (11.8-14.3)
[2024-04-28 11:29] LABS: INR 1.09 (0.9-1.15); Prothrombin Time 11.5 sec (9.3-11.8)
[2024-04-28 11:32] LABS: Alanine Aminotransferase 12 U/L (7-40); Albumin 3.9 g/dL (3.2-4.8); Alkaline Phosphatase 93 U/L (46-116); Anion Gap 8 (5-15); Aspartate Aminotransferase 9 U/L (13-40); Bilirubin, Total 0.5 mg/dL (0.2-1.0); Calcium 9.2 mg/dL (8.5-10.1); Carbon Dioxide 24 mmol/L (20-30); Chloride 100 mmol/L (98-107); Glucose 97 mg/dL (74-106); Magnesium 1.9 mg/dL (1.6-2.6); Potassium 3.3 mmol/L (3.5-5.1); Total Protein 6.7 g/dL (5.7-8.2)
[2024-04-28 11:36] LABS: Sodium 132 mmol/L (136-145)
[2024-04-28 11:37] LABS: BUN/Creatinine Ratio 12.2 (10.0-20.0); Blood Urea Nitrogen < 5 mg/dL (9-23)
[2024-04-28] MEDS: CIPROFLOXACIN 400MG/200ML 200 ML IV ONE (12:23)
[2024-04-28] MEDS: FAMOTIDINE (10MG/ML) 2ML VL IV ONE (15:06)
[2024-04-28] MEDS ORDERED: ePHEDrine SULFATE 50 MG/ML AMP ONE (15:14)
[2024-04-28] MEDS ORDERED: MIDAZOLAM HCL 2MG/2ML 2ml VIAL (1mg/ml) ONE (15:14)
[2024-04-28] MEDS ORDERED: KETAMINE 50mg/ML 1ml syringe ONE (15:14)
[2024-04-28] MEDS ORDERED: ONDANSETRON HCL 4 MG/2 ML VIAL ONE (15:14)
[2024-04-28] MEDS ORDERED: ROCURONIUM 10MG/ML 10ML VIAL IV ONE (15:14)
[2024-04-28] MEDS ORDERED: LIDOCAINE 2% (LOCAL ANESTH.) PF 5ml SDV ONE (15:14)
[2024-04-28] MEDS ORDERED: GLYCOPYRROLATE 0.2 MG/ML 1ML VIAL ONE (15:14)
[2024-04-28] MEDS ORDERED: fentaNYL CITRATE 100 MCG/2 ML VL ONE (15:14)
[2024-04-28] MEDS ORDERED: DexAMETHasone SOD PHOS 10MG/1ML VIAL INJ ONE (15:14)
[2024-04-28] MEDS ORDERED: HYDROmorphone HCL 2 MG/ML VL/or syr ONE (15:14)
[2024-04-28] MEDS: IOHEXOL 300 MG/ML 100ML BOTTLE IJ ONE (16:35)
[2024-04-28] MEDS ORDERED: SUGAMMADEX 200mg/2ml Vial (100MG/ML) IV ONE (16:51)
[2024-04-28 17:06] VITALS: O2SAT 100
[2024-04-28] MEDS: ONDANSETRON HCL 4 MG/2 ML VIAL IV ONE (17:15)
[2024-04-28] MEDS ORDERED: HYDROmorphone HCL 2 MG/ML VL/or syr IV PRN (17:15)
[2024-04-28] MEDS: POTASSIUM CHL 20 Meq TABLET PO ONE (18:56)
[2024-04-28 20:00] VITALS: PULSE 79; RESP 16
[2024-04-28 21:00] VITALS: BP 116/71; PULSE 79; RESP 16; TEMP 98.3; O2SAT 93
[2024-04-28] MEDS: HYDROmorphone HCL 2 MG/ML VL/or syr IV PRN (21:28)
[2024-04-29] VITALS (9 sets, daily range): BP systolic 107–123; BP diastolic 51–91; PULSE 52–79; RESP 16–17; TEMP 36.6–36.7; O2SAT 93–98
[2024-04-29] MEDS: DOCUSATE SOD 100 MG CAP PO PRN (09:00)
[2024-04-29] MEDS ORDERED: CIPR-173 PO (12:09)
== END 2024-04-29 20:29 | disposition home health service (06) | DRG 699 ==
LOC: ER 23:47 → EDBD 23:47 → EDUNIT# 23:47 → OVERFLOW 04-25 07:23 → CENTRAL 04-25 18:46
PROVIDERS: ADMIT Nurse Practitioner; ATTEND Nurse Practitioner
PROC: 0T903ZZ Drainage of Right Kidney, Percutaneous Approach (ICD-10-PCS; 2024-04-27)
PROC: BT111ZZ Fluoroscopy of Right Kidney using Low Osmolar Contrast (ICD-10-PCS; 2024-04-27)
PROC: 0TJ5XZZ Inspection of Kidney, External Approach (ICD-10-PCS; principal; 2024-04-28 15:31)
DX: T83.511A Infection and inflammatory reaction due to indwelling urethral catheter, initial encounter (principal); G82.20 Paraplegia, unspecified; N39.0 Urinary tract infection, site not specified; R31.9 Hematuria, unspecified; N20.0 Calculus of kidney; I10 Essential (primary) hypertension; F17.210 Nicotine dependence, cigarettes, uncomplicated; K52.9 Noninfective gastroenteritis and colitis, unspecified; K59.00 Constipation, unspecified; R00.1 Bradycardia, unspecified; Y83.8 Other surgical procedures as the cause of abnormal reaction of the patient, or of later complication, without mention of misadventure at the time of the procedure; Z88.0 Allergy status to penicillin; Z79.899 Other long term (current) drug therapy; Z79.891 Long term (current) use of opiate analgesic; Z90.49 Acquired absence of other specified parts of digestive tract; Z87.442 Personal history of urinary calculi; Y92.89 Other specified places as the place of occurrence of the external cause
CPT/HCPCS: 36415; 50432; 71045; 74018; 74176; 74425; 76000; 76775; 76942; 80053; 80307; 81001; 83605; 83735; 84100; 85025; 85610; 85730; 87086; 99152; C9113; G0378; J1100; J1885; J1956; J2001; J2250; J2405; J2543; J3490; Q9967

== ENCOUNTER 2024-05-03 13:46 | Inpatient (IN) | payer MEDICARE, OTHER ==
[~2024-05-03] VITALS: Ht 175.3 cm; Wt 112.0 kg
[~2024-05-03 13:46] MED LIST changes: +CIPR-173 PO; -LEVO500T91 PO; -MUPI2OIN2 EX
[2024-05-03 14:41] LABS: Basophils # (auto) 0.1 10 ^3/uL (0-0.2); Basophils % (auto) 0.8 % (0.0-2.0); Eosinophils # (auto) 0.3 10 ^3/uL (0-0.8); Eosinophils % (auto) 3.6 % (0.0-7.0); Hematocrit 40.4 % (41.0-53.0); Hemoglobin 13.2 g/dL (13.5-17.5); Lymphocytes # (auto) 2.1 10 ^3/uL (0.4-5.4); Lymphocytes % (auto) 24.9 % (10.0-50.0); Mean Corpuscular Hemoglobin 28.6 pg (28.0-32.0); Mean Corpuscular Hgb Conc. 32.8 g/dL (32.0-36.0); Mean Corpuscular Volume 87.4 fL (80.0-100.0); Monocytes # (auto) 0.5 10 ^3/uL (0-1.3); Monocytes % (auto) 5.9 % (0.0-12.0); Neutrophils # (auto) 5.5 10 ^3/uL (1.6-8.6); Neutrophils % (auto) 64.8 % (37.0-80.0); Nucleated Red Blood Cells % 0.1 %; Red Blood Cells 4.63 10^6/uL (4.5-5.90); Red Cell Distribution Width 14.3 % (11.8-14.3); White Blood Cell 8.5 10^3/uL (4.4-10.8)
[2024-05-03 14:56] LABS: Alanine Aminotransferase 34 U/L (7-40); Albumin 3.4 g/dL (3.2-4.8); Alkaline Phosphatase 88 U/L (46-116); Anion Gap 5 (5-15); Aspartate Aminotransferase 16 U/L (13-40); Bilirubin, Total 0.4 mg/dL (0.2-1.0); Blood Urea Nitrogen 8 mg/dL (9-23); Carbon Dioxide 28 mmol/L (20-30); Chloride 109 mmol/L (98-107); Glucose 90 mg/dL (74-106); Potassium 3.8 mmol/L (3.5-5.1); Sodium 142 mmol/L (136-145); Total Protein 5.6 g/dL (5.7-8.2)
[2024-05-03 15:05] LABS: CRP High Sensitivity 3.47 mg/dL (<1.0)
[2024-05-03 15:26] LABS: Erythrocyte Sedimentation Rate 17 mm/hr (0-20)
[2024-05-03] MEDS ORDERED: VANCOMYCIN PER PHARMACY 0 MG IV SCH (16:15)
[2024-05-03] MEDS: VANCOMYCIN 1GM/200ML 200 ML IV ONE (17:32)
[2024-05-03 18:00] VITALS: PULSE 64; RESP 14; O2SAT 95
[2024-05-03 18:26] LABS: Amphetamine Screen, Urine Neg (NEGATIVE); Barbiturate Scree,Urine Neg (NEGATIVE); Benzodiazephine Screen, Urine Neg (NEGATIVE); Cocaine Screen, Urine Neg (NEGATIVE); Opiate Scree,Urine Pos (NEGATIVE)
[2024-05-03 18:27] LABS: Cannabinoid Screen, Urine Pos (NEGATIVE)
[2024-05-03 18:31] LABS: Phencyclidine Screen, Urine Neg (NEGATIVE)
[2024-05-03 18:50] LABS: Urine Bacteria FEW /hpf (None Seen); Urine Blood 3+ /uL (Negative); Urine Clarity Ex.Turbid (Clear); Urine Color Light-Orange (Yellow); Urine Mucus MANY (None Seen); Urine Protein, UAD 1+ (Negative); Urine Specific Gravity 1.018 (1.001-1.035); Urine Urobilinogen 4 mg/dL (Negative); Urine WBC 245 /hpf (0 - 3); Urine WBC Clumps PRESENT /hpf (None Seen)
[2024-05-03] MEDS ORDERED: ALBUTEROL SULF 2.5 MG/0.5ML(0.5%) NEB SOLN NEB PRN (22:00)
[2024-05-03] MEDS ORDERED: NITROGLYCERIN 0.4 MG SL TAB SL PRN (22:00)
[2024-05-03] MEDS ORDERED: ACETAMINOPHEN 325 MG TAB PO PRN (22:00)
[2024-05-03] MEDS ORDERED: DOCUSATE SOD 100 MG CAP PO PRN (22:00)
[2024-05-03] MEDS ORDERED: TEMAZEPAM 15 MG CAP PO PRN (22:00)
[2024-05-03 22:06] VITALS: BP 96/55; PULSE 63; RESP 13; O2SAT 93
[2024-05-03] MEDS: ASCORBIC ACID 500 MG TAB PO SCH (22:36)
[2024-05-03] MEDS: CIPROFLOXACIN HCL 500 MG TAB PO SCH (22:36)
[2024-05-03 23:50] VITALS: PULSE 64; RESP 14; O2SAT 93
[2024-05-04] MEDS: QUEtiapine FUMARATE 100 MG TAB PO SCH (02:57)
[2024-05-04] MEDS: VANCOMYCIN 1GM/200ML 200 ML IV SCH (02:58)
[2024-05-04 04:25] LABS: Basophils # (auto) 0.1 10 ^3/uL (0-0.2); Eosinophils # (auto) 0.3 10 ^3/uL (0-0.8); Eosinophils % (auto) 3.6 % (0.0-7.0); Hematocrit 33.2 % (41.0-53.0); Hemoglobin 10.9 g/dL (13.5-17.5); Lymphocytes # (auto) 1.9 10 ^3/uL (0.4-5.4); Lymphocytes % (auto) 22.3 % (10.0-50.0); Mean Corpuscular Hgb Conc. 32.8 g/dL (32.0-36.0); Mean Corpuscular Volume 88.6 fL (80.0-100.0); Monocytes # (auto) 0.6 10 ^3/uL (0-1.3); Monocytes % (auto) 7.6 % (0.0-12.0); Neutrophils # (auto) 5.5 10 ^3/uL (1.6-8.6); Neutrophils % (auto) 65.5 % (37.0-80.0); Red Blood Cells 3.75 10^6/uL (4.5-5.90); Red Cell Distribution Width 14.4 % (11.8-14.3); White Blood Cell 8.4 10^3/uL (4.4-10.8)
[2024-05-04 04:39] LABS: Alanine Aminotransferase 24 U/L (7-40); Albumin 2.8 g/dL (3.2-4.8); Alkaline Phosphatase 63 U/L (46-116); Anion Gap 8 (5-15); Aspartate Aminotransferase 11 U/L (13-40); BUN/Creatinine Ratio 22.7 (10.0-20.0); Blood Urea Nitrogen 5 mg/dL (9-23); Calcium 7.7 mg/dL (8.7-10.4); Carbon Dioxide 22 mmol/L (20-30); Chloride 103 mmol/L (98-107); Glucose 71 mg/dL (74-106); Potassium 3.1 mmol/L (3.5-5.1)
[2024-05-04 04:40] LABS: Bilirubin, Total 0.3 mg/dL (0.2-1.0); Total Protein 4.8 g/dL (5.7-8.2)
[2024-05-04 04:42] LABS: Sodium 133 mmol/L (136-145)
[2024-05-04] MEDS: MIDODRINE HCL 10 MG TAB PO SCH (06:00)
[2024-05-04 06:10] VITALS: O2SAT 94
[2024-05-04 08:30] VITALS: BP 91/63; PULSE 64; RESP 18; TEMP 97.8; O2SAT 94
[2024-05-04] MEDS: ENOXAPARIN SOD 40 MG/0.4 ML SYRINGE SC SCH (10:00)
[2024-05-04] MEDS: ZINC SULFATE 220mg CAP or TAB PO SCH (10:52)
[2024-05-04] MEDS: CITALOPRAM HYDROBR 20 MG TAB PO SCH (10:53)
[2024-05-04] MEDS: Ensure HIGH Protein Chocolate 8oz Bottle PO SCH (12:19)
[2024-05-04 13:00] VITALS: BP 104/61; PULSE 67; RESP 18; TEMP 97.7; O2SAT 94
[2024-05-04] MEDS: ONDANSETRON HCL 4 MG/2 ML VIAL IV PRN (15:56)
[2024-05-04] MEDS: MORPHINE SULFATE INJ 2 MG/ml SYRG IV PRN ×2 (15:58→21:37)
[2024-05-04 17:00] VITALS: BP 107/64; PULSE 81; RESP 20; TEMP 98; O2SAT 95
[2024-05-04] MEDS: TAMSULOSIN HYDROCHLORIDE 0.4 MG CAP PO SCH (17:45)
[2024-05-04] MEDS: HYDROcodone-ACET 5/325MG TAB PO PRN (17:46)
[2024-05-04 20:00] VITALS: PULSE 78; RESP 16; O2SAT 96
[2024-05-04 21:00] VITALS: BP 92/56; PULSE 76; RESP 18; TEMP 99; O2SAT 93
[2024-05-05] VITALS (7 sets, daily range): BP systolic 87–105; BP diastolic 57–62; PULSE 54–77; RESP 14–19; TEMP 98.1–99.1; O2SAT 93–98
[2024-05-05 09:53] LABS: Basophils # (auto) 0.1 10 ^3/uL (0-0.2); Basophils % (auto) 0.9 % (0.0-2.0); Eosinophils # (auto) 0.2 10 ^3/uL (0-0.8); Eosinophils % (auto) 3.4 % (0.0-7.0); Hematocrit 31.7 % (41.0-53.0); Hemoglobin 10.5 g/dL (13.5-17.5); Lymphocytes # (auto) 1.7 10 ^3/uL (0.4-5.4); Mean Corpuscular Hemoglobin 29.6 pg (28.0-32.0); Mean Corpuscular Volume 89.5 fL (80.0-100.0); Monocytes # (auto) 0.5 10 ^3/uL (0-1.3); Monocytes % (auto) 7.1 % (0.0-12.0); Neutrophils # (auto) 4.6 10 ^3/uL (1.6-8.6); Neutrophils % (auto) 64.6 % (37.0-80.0); Nucleated Red Blood Cells % 0.1 %; Red Blood Cells 3.54 10^6/uL (4.5-5.90); Red Cell Distribution Width 14.5 % (11.8-14.3); White Blood Cell 7.1 10^3/uL (4.4-10.8)
[2024-05-05 11:12] LABS: Sodium 127 mmol/L (136-145)
[2024-05-05 11:13] LABS: Chloride 98 mmol/L (98-107)
[2024-05-05 11:14] LABS: Anion Gap 10 (5-15); BUN/Creatinine Ratio 33.3 (10.0-20.0); Blood Urea Nitrogen < 5 mg/dL (9-23); Carbon Dioxide 19 mmol/L (20-30); Glucose 62 mg/dL (74-106); Potassium 2.4 mmol/L (3.5-5.1)
[2024-05-05 11:16] LABS: Calcium 5.7 mg/dL (8.5-10.1)
[2024-05-05] MEDS: POTASSIUM CHL 20 Meq TABLET PO ONE (12:35)
[2024-05-05] MEDS: SOD CHL 0.9%/ KCL 40MEQ 1,000 ML IV SCH (12:36)
[2024-05-06] VITALS (10 sets, daily range): BP systolic 91–116; BP diastolic 53–74; PULSE 51–76; RESP 16–20; TEMP 97.9–98.6; O2SAT 94–98
[2024-05-06] MEDS: levoFLOXacin 500MG 100 ML IV SCH (09:45)
[2024-05-06 19:38] LABS: Basophils # (auto) 0.1 10 ^3/uL (0-0.2); Basophils % (auto) 1.4 % (0.0-2.0); Eosinophils # (auto) 0.3 10 ^3/uL (0-0.8); Eosinophils % (auto) 4.1 % (0.0-7.0); Hematocrit 40.6 % (41.0-53.0); Hemoglobin 13.9 g/dL (13.5-17.5); Lymphocytes # (auto) 1.7 10 ^3/uL (0.4-5.4); Lymphocytes % (auto) 21.2 % (10.0-50.0); Mean Corpuscular Hemoglobin 30.4 pg (28.0-32.0); Mean Corpuscular Hgb Conc. 34.1 g/dL (32.0-36.0); Monocytes # (auto) 0.6 10 ^3/uL (0-1.3); Monocytes % (auto) 7.5 % (0.0-12.0); Neutrophils # (auto) 5.2 10 ^3/uL (1.6-8.6); Neutrophils % (auto) 65.8 % (37.0-80.0); Nucleated Red Blood Cells % 0.2 %; Red Blood Cells 4.56 10^6/uL (4.5-5.90); Red Cell Distribution Width 14.3 % (11.8-14.3); White Blood Cell 7.9 10^3/uL (4.4-10.8)
[2024-05-06 19:55] LABS: Alanine Aminotransferase 23 U/L (7-40); Albumin 3.7 g/dL (3.2-4.8); Alkaline Phosphatase 93 U/L (46-116); Anion Gap 2 (5-15); Aspartate Aminotransferase 10 U/L (13-40); BUN/Creatinine Ratio 10.9 (10.0-20.0); Bilirubin, Total 0.2 mg/dL (0.2-1.0); Blood Urea Nitrogen 5 mg/dL (9-23); Calcium 9.3 mg/dL (8.5-10.1); Carbon Dioxide 30 mmol/L (20-30); Chloride 105 mmol/L (98-107); Glucose 89 mg/dL (74-106); Potassium 4.4 mmol/L (3.5-5.1); Sodium 137 mmol/L (136-145)
[2024-05-06 19:56] LABS: Total Protein 6.2 g/dL (5.7-8.2)
[2024-05-07] VITALS (7 sets, daily range): BP systolic 89–102; BP diastolic 56–71; PULSE 55–90; RESP 16–20; TEMP 97.8–98.5; O2SAT 92–98
[2024-05-07 11:19] LABS: Basophils # (auto) 0.1 10 ^3/uL (0-0.2); Basophils % (auto) 1.1 % (0.0-2.0); Eosinophils # (auto) 0.2 10 ^3/uL (0-0.8); Eosinophils % (auto) 3.1 % (0.0-7.0); Hematocrit 40.7 % (41.0-53.0); Hemoglobin 13.6 g/dL (13.5-17.5); Lymphocytes # (auto) 1.5 10 ^3/uL (0.4-5.4); Mean Corpuscular Hemoglobin 29.8 pg (28.0-32.0); Mean Corpuscular Hgb Conc. 33.6 g/dL (32.0-36.0); Mean Corpuscular Volume 88.7 fL (80.0-100.0); Monocytes # (auto) 0.4 10 ^3/uL (0-1.3); Monocytes % (auto) 6.1 % (0.0-12.0); Neutrophils # (auto) 4.8 10 ^3/uL (1.6-8.6); Neutrophils % (auto) 68.7 % (37.0-80.0); Red Blood Cells 4.59 10^6/uL (4.5-5.90); Red Cell Distribution Width 14.7 % (11.8-14.3)
[2024-05-07 11:21] LABS: Calcium 9.4 mg/dL (8.5-10.1); Potassium 4.5 mmol/L (3.5-5.1)
[2024-05-07 11:27] LABS: BUN/Creatinine Ratio 11.9 (10.0-20.0)
[2024-05-07 11:28] LABS: Albumin 3.7 g/dL (3.2-4.8)
[2024-05-07 11:30] LABS: Phosphorus 3.3 mg/dL (2.4-5.1)
[2024-05-07] MEDS: POTASSIUM EFFERVESENT TAB 25 MEQ PO SCH (12:57)
[2024-05-07] MEDS: FUROSEMIDE 40 MG/4 ML VIAL IV SCH (12:59)
[2024-05-07] MEDS: QUEtiapine FUMARATE 100 MG TAB PO SCH (21:16)
[2024-05-08] VITALS (7 sets, daily range): BP systolic 88–113; BP diastolic 59–68; PULSE 64–78; RESP 17–18; TEMP 98–99.2; O2SAT 94–96
[2024-05-08] MEDS: SERTRALINE HCL 50 MG TAB PO SCH (09:36)
[2024-05-08 19:48] LABS: Basophils # (auto) 0.1 10 ^3/uL (0-0.2); Basophils % (auto) 0.9 % (0.0-2.0); Eosinophils # (auto) 0.2 10 ^3/uL (0-0.8); Hematocrit 40.1 % (41.0-53.0); Hemoglobin 13.6 g/dL (13.5-17.5); Lymphocytes # (auto) 1.7 10 ^3/uL (0.4-5.4); Mean Corpuscular Hemoglobin 29.3 pg (28.0-32.0); Mean Corpuscular Volume 86.2 fL (80.0-100.0); Monocytes # (auto) 0.6 10 ^3/uL (0-1.3); Monocytes % (auto) 7.1 % (0.0-12.0); Neutrophils # (auto) 6.4 10 ^3/uL (1.6-8.6); Red Blood Cells 4.65 10^6/uL (4.5-5.90); Red Cell Distribution Width 14.2 % (11.8-14.3)
[2024-05-08 20:15] LABS: Alanine Aminotransferase 15 U/L (7-40); Albumin 3.8 g/dL (3.2-4.8); Alkaline Phosphatase 99 U/L (46-116); Anion Gap 5 (5-15); Aspartate Aminotransferase 8 U/L (13-40); Bilirubin, Total 0.3 mg/dL (0.2-1.0); Blood Urea Nitrogen 8 mg/dL (9-23); Calcium 9.2 mg/dL (8.5-10.1); Carbon Dioxide 27 mmol/L (20-30); Chloride 101 mmol/L (98-107); Glucose 93 mg/dL (74-106); Sodium 133 mmol/L (136-145); Total Protein 6.5 g/dL (5.7-8.2)
[2024-05-09 01:00] VITALS: BP 91/60; PULSE 73; RESP 18; TEMP 97.7; O2SAT 95
[2024-05-09 05:00] VITALS: BP 93/61; PULSE 64; RESP 18; TEMP 97.4; O2SAT 96
[2024-05-09 08:00] VITALS: PULSE 95; RESP 16; O2SAT 96
[2024-05-09 08:56] VITALS: BP 103/67; PULSE 72; RESP 19; TEMP 98.4; O2SAT 98
[2024-05-09 12:32] VITALS: BP 110/73; PULSE 95; RESP 16; TEMP 98; O2SAT 96
[2024-05-09 14:16] LABS: Basophils # (auto) 0.1 10 ^3/uL (0-0.2); Eosinophils # (auto) 0.1 10 ^3/uL (0-0.8); Hematocrit 43.5 % (41.0-53.0); Hemoglobin 14.4 g/dL (13.5-17.5); Lymphocytes # (auto) 1.4 10 ^3/uL (0.4-5.4); Lymphocytes % (auto) 15.7 % (10.0-50.0); Mean Corpuscular Hemoglobin 29.1 pg (28.0-32.0); Mean Corpuscular Hgb Conc. 33.1 g/dL (32.0-36.0); Mean Corpuscular Volume 88.1 fL (80.0-100.0); Monocytes # (auto) 0.7 10 ^3/uL (0-1.3); Monocytes % (auto) 7.9 % (0.0-12.0); Neutrophils # (auto) 6.6 10 ^3/uL (1.6-8.6); Neutrophils % (auto) 74.4 % (37.0-80.0); Red Blood Cells 4.94 10^6/uL (4.5-5.90); Red Cell Distribution Width 14.3 % (11.8-14.3); White Blood Cell 8.9 10^3/uL (4.4-10.8)
[2024-05-09 14:22] LABS: Chloride 103 mmol/L (98-107); Potassium 3.8 mmol/L (3.5-5.1); Sodium 135 mmol/L (136-145)
[2024-05-09 14:23] LABS: Anion Gap 3 (5-15); Calcium 9.6 mg/dL (8.5-10.1); Carbon Dioxide 29 mmol/L (20-30)
[2024-05-09 14:28] LABS: BUN/Creatinine Ratio 12.5 (10.0-20.0); Blood Urea Nitrogen 6 mg/dL (9-23); Glucose 105 mg/dL (74-106)
== END 2024-05-09 15:30 | disposition left against medical advice (07) | DRG 383 ==
LOC: ER 13:46 → EDBD 13:46 → OVERFLOW 21:53 → WEST WING 05-04 08:04
PROVIDERS: ADMIT Nurse Practitioner Family; ATTEND Nurse Practitioner Family
DX: L03.115 Cellulitis of right lower limb (principal); G82.20 Paraplegia, unspecified; L89.153 Pressure ulcer of sacral region, stage 3; L89.313 Pressure ulcer of right buttock, stage 3; T83.511A Infection and inflammatory reaction due to indwelling urethral catheter, initial encounter; F25.1 Schizoaffective disorder, depressive type; R71.0 Precipitous drop in hematocrit; R45.851 Suicidal ideations; L03.116 Cellulitis of left lower limb; N39.0 Urinary tract infection, site not specified; F43.23 Adjustment disorder with mixed anxiety and depressed mood; I10 Essential (primary) hypertension; R31.9 Hematuria, unspecified; N20.0 Calculus of kidney; F17.210 Nicotine dependence, cigarettes, uncomplicated; Z53.29 Procedure and treatment not carried out because of patient's decision for other reasons; Z88.0 Allergy status to penicillin; Z74.01 Bed confinement status
CPT/HCPCS: 36415; 71045; 80048; 80053; 80069; 80202; 80307; 81001; 83605; 83735; 85025; 85652; 86141; 87040; 87081; 96365; G0378; J1956; J2405